=== PATIENT | male | born 1985 | race Caucasian/White ===

== ENCOUNTER 2021-05-14 21:13 | Emergency (ER) | payer MEDICAID ==
--- NOTE | 2021-05-14 21:55 | EDM.PDOC ---
ED HPI GENERAL MEDICAL PROBLEM - General Chief Complaint: Drug or Alcohol Abuse Stated Complaint: MEDICAL VIA [place] Time Seen by Provider: 05/14/21 21:17 Source of Information: Reports: EMS History Limitations: Reports: Altered Mental Status - History of Present Illness INITIAL COMMENTS - FREE TEXT/NARRATIVE: Is a 35-year-old male presenting to the ED via [facility] for evaluation of unresponsiveness and severe alcohol intoxication. Patient was with his girlfriend and became unresponsive with foaming at the mouth according to the girlfriend. EMS was called and upon their arrival he did not respond to sternal chest rub. They did an EKG finding him to be in sinus tachycardia. The girlfriend states that the patient has been drinking beer all day and may have taken some MDMA as well. Patient does have a history of a traumatic brain injury x2. He is also has history of being on alprazolam 0.5 mg and by report from those that know him he at times will over take these prescribed drugs. The daughter also reports that the patient had a friend over that was drinking with him and is pretty sure that he is under the influence of some mind altering drug. When EMS was called the friend bolted from the apartment. Patient arrives by EMS diaphoretic, tachycardic, minimally responsive to outside stimuli. EMS reported no seizure activity. - Related Data Allergies Allergy/AdvReac Type Severity Reaction Status Date / Time No Known Allergies Allergy Verified 05/14/21 21:28 Home Meds: Home Meds ALPRAZolam [Alprazolam] 0.5 mg PO BID 05/14/21 [History] Social & Family History - Tobacco Use Tobacco Use Status *Q: Unknown Ever Used Tobacco ED ROS GENERAL - Review of Systems Review Of Systems: Unable To Obtain Reason Not Obtained: Patient is severely intoxicated and has altered mental status. - Physical Exam Exam: See Below Exam Limited By: Altered Mental Status General Appearance: Lethargic Eye Exam: Bilateral Eye: PERRL (5 mm bilaterally and reactive to light) Ears: Normal External Exam Nose: Normal Inspection, Normal Mucosa Throat/Mouth: Normal Inspection, Normal Oropharynx, No Airway Compromise Head Exam: Atraumatic, Normocephalic, Other (Flushed face) Neck: Normal Inspection, Supple Respiratory/Chest: No Respiratory Distress, Lungs Clear, Normal Breath Sounds Cardiovascular: Normal Peripheral Pulses, Regular Rate, Rhythm, No Murmur, Tachycardia GI/Abdominal: Normal Bowel Sounds, Soft, Non-Tender Neuro Exam (Abbreviated): No Motor/Sensory Deficits, Slow to Respond Extremities: Normal Inspection, No Pedal Edema Skin Exam: Warm, Dry, Normal Color #1 Interpretation EKG Date: 05/14/21 Time: 21:10 Rhythm: NSR (Sinus tachycardia) Rate (Beats/Min): 146 [place]: Normal P-Wave: Enlarged (Left atrial enlargement) QRS: Normal (RSR prime in V1 V2 consistent with right ventricular hypertrophy) ST-T: Normal QT: Normal Comparison: NA - No Prior EKG Course - Vital Signs Last Recorded V/S: Last Vital Signs Temp 36.4 C 05/14/21 21:17 Pulse 104 H 05/14/21 23:30 Resp 16 05/14/21 23:30 BP 119/57 L 05/14/21 23:30 Pulse Ox 93 L 05/14/21 23:30 - Orders/Labs/Meds Orders: Active Orders 24 hr Category Date Time Status DRUG SCREEN, URINE [URCHEM] Stat Lab 05/14/21 21:17 Ordered UA W/MICROSCOPIC [URIN] Stat Lab 05/14/21 21:17 Ordered Labs: Laboratory Tests 05/14/21 05/14/21 05/14/21 Range/Units 21:24 21:24 21:24 WBC 8.4 (4.5-11.0) K/uL RBC 5.22 (4.30-5.90) M/uL Hgb 16.4 H (12.0-15.0) g/dL Hct 47.1 (40.0-54.0) % MCV 90 (80-98) fL MCH 31 (27-31) pg MCHC 35 (32-36) % Plt Count 314 (150-400) K/uL Neut % (Auto) 65.5 (36-66) % Lymph % (Auto) 27.9 (24-44) % [place] % (Auto) 6.1 H (2-6) % Eos % (Auto) 0.1 L (2-4) % Baso % (Auto) 0.4 (0-1) % Sodium 141 (140-148) mmol/L Potassium 3.6 (3.6-5.2) mmol/L Chloride 105 (100-108) mmol/L Carbon Dioxide 25 (21-32) mmol/L Anion Gap 11.1 (5.0-14.0) mmol/L BUN 7 (7-18) mg/dL Creatinine 0.9 (0.8-1.3) mg/dL Est Cr Clr Drug Dosing 126.94 mL/min Estimated GFR (MDRD) > 60 (>60) Glucose 107 H (74-106) mg/dL Calcium 8.0 L (8.5-10.1) mg/dL Total Bilirubin 1.2 H (0.2-1.0) mg/dL AST 20 (15-37) U/L ALT 31 (12-78) U/L Alkaline Phosphatase 75 (46-116) U/L Total Protein 7.4 (6.4-8.2) g/dL Albumin 4.2 (3.4-5.0) g/dL Globulin 3.2 (2.3-3.5) g/dL Albumin/Globulin Ratio 1.3 (1.2-2.2) Ethyl Alcohol 264 mg/dL Meds: Medications Discontinued Medications Generic Name Dose Route Start Last Admin Trade Name Freq PRN Reason Stop Dose Admin Metoprolol Tartrate 5 mg 05/14/21 22:02 05/14/21 22:08 Metoprolol Tartrate 5 Mg/5 Ml Sdv IVPUSH 05/14/21 22:03 5 mg ONETIME ONE Administration - Re-Assessments/Exams Free Text/Narrative Re-Assessment/Exam: 05/15/21 00:31 the patient's labs showing a leukocyte count of 8.4, hemoglobin of 16.4, hematocrit 47.1, and platelet count 3 and 14,000. The comprehensive metabolic panel is unremarkable. The patient's ethanol level is 264. The patient was not able to give us a urine at this time he has recovered enough that he wants to go home. I do not have an explanation for his tachycardia but it is likely due to his stimulant. Patient states that he has significant anxiety which is why he has the alprazolam and was probably unresponsive because of the alprazolam interacting with the alcohol tonight. The girlfriend will take responsibility for him going forward. Indications return to the ED were discussed. Departure - Departure Time of Disposition: 00:32 Disposition: Home, Self-Care 01 Clinical Impression: Unresponsiveness Alcohol intoxication Qualifiers: Complication of substance-induced condition: uncomplicated Qualified Code(s): F10.920 - Alcohol use, unspecified with intoxication, uncomplicated - Discharge Information Instructions: Alcohol Intoxication, [id number] Referrals: PCP,Unknown [Primary Care Provider] - Forms: ED Department Discharge Care Plan Goals: Make sure to drink plenty of fluids. Be careful when taking alprazolam in the presence of alcohol. Feel free to contact us if you have any concerns. Sepsis Event Note (ED) - Evaluation Sepsis Screening Result: No Definite Risk - Focused Exam Vital Signs: Vital Signs Temp Pulse Pulse Resp BP BP Pulse Ox 05/14/21 23:30 104 H 16 119/57 L 93 L 05/14/21 23:00 112 H 14 112/57 L 94 L 05/14/21 22:30 121 H 14 124/77 93 L 05/14/21 22:13 119 H 12 129/68 94 L 05/14/21 22:08 145 H 129/68 05/14/21 21:40 144 H 15 117/54 L 93 L 05/14/21 21:39 141 H 18 117/54 L 96 05/14/21 21:17 36.4 C 152 H 12 144/77 H 95 05/14/21 21:15 36.4 C 152 H 12 144/77 H 95 - Problem List & Annotations (1) Alcohol intoxication SNOMED Code(s): 60318044 Code(s): F10.929 - ALCOHOL USE, UNSPECIFIED WITH INTOXICATION, UNSPECIFIED Status: Acute Priority: High Current Visit: Yes Qualifiers: Complication of substance-induced condition: uncomplicated Qualified Code(s): F10.920 - Alcohol use, unspecified with intoxication, uncomplicated (2) Unresponsiveness SNOMED Code(s): 232471112 Code(s): R41.89 - OTH SYMPTOMS AND SIGNS W COGNITIVE FUNCTIONS AND AWARENESS Status: Acute Priority: High Current Visit: Yes - Problem List Review Problem List Initiated/Reviewed/Updated: Yes - My Orders Last 24 Hours: My Active Orders 05/14/21 21:17 DRUG SCREEN, URINE [URCHEM] Stat UA W/MICROSCOPIC [URIN] Stat - Assessment/Plan Last 24 Hours: My Active Orders 05/14/21 21:17 DRUG SCREEN, URINE [URCHEM] Stat UA W/MICROSCOPIC [URIN] Stat
[2021-05-14] MEDS ORDERED: Metoprolol Tartrate 5 MG/5 ML SDV IVPUSH ONE (22:02)
== END 2021-05-15 00:48 | disposition home or self-care (01) ==
LOC: JP.ED 21:13
DX: F10.129 Alcohol abuse with intoxication, unspecified (principal); R40.4 Transient alteration of awareness
CPT/HCPCS: 36415; 80053; 80307; 85025; 96374; 99284; J3490